=== PATIENT | female | born 1995 | race Caucasian/White ===

== ENCOUNTER 2023-02-08 11:45 | Emergency (ER) | payer OTHER ==
[~2023-02-08] VITALS: Ht 170.2 cm; Wt 79.5 kg
[2023-02-08] MEDS ORDERED: BUPR300T92 PO (16:05)
[2023-02-08] MEDS ORDERED: SERT50TA29 PO (16:05)
[2023-02-08 17:11] LABS: BASO % 0.2 % (0.0-1.0); EOS # 0.1 10^3/uL (0.0-0.5); EOS % 2.1 % (0.0-3.0); HEMOGLOBIN 12.3 g/dl (12.0-15.5); LYMPH # 1.1 10^3/uL (1.5-5.0); LYMPH % 22.3 % (24.0-44.0); MEAN CORPUSCULAR HEMOGLOBIN 30.8 pg (27.0-33.0); MEAN CORPUSCULAR HGB CONC 33.2 g/dl (32.0-36.5); MEAN CORPUSCULAR VOLUME 92.7 fl (80.0-96.0); MONO # 0.6 10^3/uL (0.0-0.8); NEUTROPHILS # 3.1 10^3/uL (1.5-8.5); NEUTROPHILS % 63.2 % (36.0-66.0); PLATELET COUNT, AUTOMATED 256 10^3/uL (150-450); RED BLOOD COUNT 3.99 10^6/uL (4.00-5.40); WHITE BLOOD COUNT 4.9 10^3/uL (4.0-10.0)
[2023-02-08 17:39] LABS: LIPASE 24 U/L (12-53)
[2023-02-08 17:41] LABS: ALBUMIN 4.1 G/DL (3.2-5.2); ALKALINE PHOSPHATASE 52 U/L (46-116); ALT/SGPT 16 U/L (7.0-40); AST/SGOT 17 U/L (<34); BILIRUBIN,DIRECT < 0.1 MG/DL (<0.4); BILIRUBIN,TOTAL 0.3 MG/DL (0.3-1.2); BLOOD UREA NITROGEN 8 MG/DL (9-23); CALCIUM LEVEL 9.1 MG/DL (8.5-10.1); CARBON DIOXIDE LEVEL 25 MMOL/L (20-31); CHLORIDE LEVEL 106 MMOL/L (98-107); CREATININE FOR GFR 0.82 MG/DL (0.55-1.30); GLOMERULAR FILTRATION RATE > 60.0 (>60); GLUCOSE, FASTING 87 MG/DL (60-100); POTASSIUM SERUM 3.8 MMOL/L (3.5-5.1); SODIUM LEVEL 139 MMOL/L (136-145); TOTAL PROTEIN 7.2 G/DL (5.7-8.2)
[2023-02-08 17:53] LABS: RSV AMPLIFICATION NEGATIVE (NEGATIVE)
[2023-02-08 19:01] LABS: HCG, SERUM QUALITATIVE NEGATIVE (NEGATIVE)
[2023-02-08] MEDS ORDERED: ISOVUE-370 76% 100ML VIAL As Ordered ONE (19:02)
[2023-02-08 19:29] VITALS: BP 130/76; TEMP 97.4; O2SAT 99
== END 2023-02-08 19:56 | disposition home or self-care (01) ==
LOC: M ED 11:45
DX: N83.201 Unspecified ovarian cyst, right side (principal)
CPT/HCPCS: 74177; 80048; 80076; 81001; 83690; 84703; 85025; 87631; 99284; Q9967

== ENCOUNTER → 2023-09-26 | Outpatient (CLI) | payer OTHER ==
[~2023-09-26] MED LIST: BUPR-597 PO; SERT50TA29 PO
== END ==
LOC: M RAD 15:40
PROVIDERS: ATTEND Student in an Organized Health Care Education/Training Program
DX: R61 Generalized hyperhidrosis (principal); R91.8 Other nonspecific abnormal finding of lung field

== ENCOUNTER → 2024-04-02 | Outpatient (CLI) | payer OTHER | LOC: M CARPUL 14:40 | PROVIDERS: ATTEND Internal Medicine Pulmonary Disease | DX: R09.1 Pleurisy (principal) ==

== ENCOUNTER → 2024-04-03 | Outpatient (CLI) | payer OTHER ==
[2024-04-03 12:42] LABS: C REACTIVE PROTEIN QUANTITATIV < 0.50 MG/DL (<1.0)
[2024-04-03 12:43] LABS: RHEUMATOID FACTOR QUANT < 3.5 IU/ML (<14)
[2024-04-04 14:56] LABS: RNP ANTIBODY <1.0 NEG AI (<1.0 NEG); SM ANTIBODY <1.0 NEG AI (<1.0 NEG); SSA SJOGRENS A <1.0 NEG AI (<1.0 NEG); SSB SJOGRENS B <1.0 NEG AI (<1.0 NEG)
[2024-04-04 15:22] LABS: CYCLIC CITRULLINATED PEPTIDE < 16 UNITS (<20)
[2024-04-04 18:42] LABS: ANA SCREEN, IFA NEGATIVE (NEGATIVE)
[2024-04-07 01:07] LABS: ANCA SCREEN Negative (Negative)
[2024-04-09 17:09] LABS: ANTI DS-DNA AB NEGATIVE (NEGATIVE)
== END ==
LOC: M LAB 10:27
PROVIDERS: ATTEND Internal Medicine Pulmonary Disease
DX: R09.1 Pleurisy (principal)

== ENCOUNTER 2024-05-30 13:05 | Emergency (ER) | payer OTHER ==
[~2024-05-30] VITALS: Ht 170.2 cm; Wt 83.8 kg
[~2024-05-30 13:05] MED LIST changes: -BUPR-597 PO; +BUPR-766 PO
[2024-05-30 15:23] VITALS: BP 132/78; TEMP 96.6; O2SAT 99
== END 2024-05-30 15:24 | disposition home or self-care (01) ==
LOC: M ED 13:05
DX: T23.102A Burn of first degree of left hand, unspecified site, initial encounter (principal); T31.0 Burns involving less than 10% of body surface; X10.1XXA Contact with hot food, initial encounter; Y92.9 Unspecified place or not applicable; Y93.9 Activity, unspecified; Y99.9 Unspecified external cause status; F41.9 Anxiety disorder, unspecified; F32.A Depression, unspecified; Z79.899 Other long term (current) drug therapy

== ENCOUNTER → 2024-08-14 | Outpatient (CLI) | payer OTHER | LOC: M WHC 13:43 | PROVIDERS: ATTEND Advanced Practice Midwife | DX: Z34.02 Encounter for supervision of normal first pregnancy, second trimester (principal); Z3A.00 Weeks of gestation of pregnancy not specified ==

== ENCOUNTER → 2024-08-23 | Outpatient (CLI) | payer OTHER ==
[2024-08-23 15:43] LABS: PLATELET COUNT, AUTOMATED 203 10^3/uL (150-450)
[2024-08-23 16:13] LABS: GLUCOSE CHALLENGE TEST 1 HOUR 113 MG/DL (LESS THAN 140)
[2024-08-23 16:44] LABS: Trichomonas vaginalis (AMP) NOT DETECTED (NEGATIVE)
[2024-08-23 16:47] LABS: HIV 1&2 SCREEN NEGATIVE (NEGATIVE)
[2024-08-23 16:55] LABS: HEPATITIS C VIRUS ABY INDEX < 0.02 INDEX (<0.8)
[2024-08-23 17:08] LABS: GC DNA AMPLIFICATION NEGATIVE (NEGATIVE)
== END ==
LOC: M PLALAB 10:47
PROVIDERS: ATTEND Advanced Practice Midwife
DX: Z34.02 Encounter for supervision of normal first pregnancy, second trimester (principal)

== ENCOUNTER → 2024-08-28 | Outpatient (CLI) | payer OTHER | LOC: M SLEEP 20:00 | PROVIDERS: ATTEND Internal Medicine Pulmonary Disease | DX: R06.83 Snoring (principal) ==

== ENCOUNTER → 2024-10-17 | Outpatient (CLI) | payer OTHER ==
[2024-10-17 16:00] LABS: PLATELET COUNT, AUTOMATED 186 10^3/uL (150-450)
[2024-10-17 16:30] LABS: LDH LACTATE DEHYDROGENASE 212 U/L (120-246)
[2024-10-17 16:31] LABS: ALT/SGPT 30 U/L (7.0-40); AST/SGOT 38 U/L (<34); CREATININE FOR GFR 0.63 MG/DL (0.55-1.30); GLOMERULAR FILTRATION RATE > 90.0 (>60)
[2024-10-17 20:50] LABS: TOTAL PROTEIN,RANDOM URINE 32.2 MG/DL (0.0-14.0)
== END ==
LOC: M PLALAB 14:05
PROVIDERS: ATTEND Nurse Practitioner Family
DX: O13.3 Gestational [pregnancy-induced] hypertension without significant proteinuria, third trimester (principal)

== ENCOUNTER → 2024-11-01 | Outpatient (CLI) | payer OTHER ==
[2024-11-01 15:08] LABS: PLATELET COUNT, AUTOMATED 199 10^3/uL (150-450)
[2024-11-01 15:38] LABS: TOTAL PROTEIN,RANDOM URINE 66.2 MG/DL (0.0-14.0)
[2024-11-01 15:45] LABS: LDH LACTATE DEHYDROGENASE 186 U/L (120-246)
[2024-11-01 15:46] LABS: ALT/SGPT 41 U/L (7.0-40); AST/SGOT 34 U/L (<34); CREATININE FOR GFR 0.77 MG/DL (0.55-1.30); GLOMERULAR FILTRATION RATE > 90.0 (>60)
== END ==
LOC: M PLALAB 10:31
PROVIDERS: ATTEND Student in an Organized Health Care Education/Training Program
DX: O13.3 Gestational [pregnancy-induced] hypertension without significant proteinuria, third trimester (principal)

== ENCOUNTER → 2024-11-01 | Outpatient (REF) | payer OTHER ==
[~2024-11-01] MED LIST changes: +LABE200T5 PO; +PRENTAB9 PO; +SERT-141 PO
== END ==
LOC: M PLALAB 09:09
PROVIDERS: ATTEND Student in an Organized Health Care Education/Training Program
DX: Z53.9 Procedure and treatment not carried out, unspecified reason (principal)

== ENCOUNTER → 2024-11-05 | Outpatient (CLI) | payer OTHER ==
[~2024-11-05] MED LIST changes: -LABE200T5 PO; -PRENTAB9 PO; -SERT-141 PO
== END ==
LOC: M WHC 07:13
PROVIDERS: ATTEND Student in an Organized Health Care Education/Training Program
DX: O13.3 Gestational [pregnancy-induced] hypertension without significant proteinuria, third trimester (principal)